=== PATIENT | male | born 1960 | race Caucasian/White ===

== ENCOUNTER 2017-01-04 13:28 | Inpatient (IN) | payer OTHER ==
[~2017-01-04] VITALS: Ht 167.6 cm; Wt 59.3 kg
[2017-01-04] MEDS ORDERED: ACET-784 PO (13:52)
[2017-01-04] MEDS ORDERED: SERT50TA12 PO (13:52)
[2017-01-04] MEDS ORDERED: ONDA4 PO (13:52)
[2017-01-04] MEDS ORDERED: LEVE250T55 PO (13:52)
[2017-01-04 14:20] LABS: ABG A-A DIFF O2 593.3 mmHg (10-20.0); ABG BASE EXCESS 0.3 mmol/L (-2.0-3.0); ABG HCO3 24.8 mmol/L (22.0-26.0); ABG OXYHEMOGLOBIN 94.2 % (94.0-100.0); ABG PCO2 38 mmHg (35-45); ABG PH 7.427 (7.35-7.450); ALLEN TEST, BLOOD GAS Positive; TEMPERATURE, FAHRENHEIT, BG 98.6 FAHREN (96.0-98.6)
[2017-01-04 14:47] LABS: BASOPHILS # (AUTO) 0.01 K/uL (0.00-0.20); BASOPHILS % (AUTO) 0.1 % (0.0-2.0); EOSINOPHILS % (AUTO) 0 % (1.0-6.0); HEMATOCRIT 43.2 % (41-53); HEMOGLOBIN 14.2 g/dL (13.5-17.5); LYMPHOCYTES # (AUTO) 0.4 K/uL (1.0-4.8); LYMPHOCYTES % (AUTO) 4.1 % (22.0-44.0); MEAN CORPUSCULAR HEMOGLOBIN 28.5 pg (26.0-34.0); MEAN CORPUSCULAR HGB CONC 32.9 G/dL (31.0-37.0); MEAN CORPUSCULAR VOLUME 87 fL (80-100); MONOCYTES # (AUTO) 0.4 K/uL (0.1-1.0); MONOCYTES % (AUTO) 3.6 % (2.0-9.0); NEUTROPHILS # (AUTO) 9.4 K/uL (1.8-7.7); PLATELET COUNT (AUTO) 262 K/uL (150-450); RED BLOOD CELL COUNT(AUTO) 4.97 MIL/uL (4.50-5.90); RED CELL DISTRIBUTION WIDTH 16.2 % (11.5-14.5); WHITE BLOOD COUNT (AUTO) 10.2 K/uL (4.5-11.0)
[2017-01-04 14:48] LABS: NEUTROPHILS % (AUTO) 92.3 % (40.0-70.0)
[2017-01-04 14:58] LABS: ANION GAP 13 mmol/L (8-16); CALCIUM, TOTAL 9.1 mg/dL (8.8-10.5); CARBON DIOXIDE 26 mmol/L (22-29); CHLORIDE 99 mmol/L (98-107); CREATININE 1.18 mg/dL (0.60-1.30); GLOMERULAR FILTR. RATE CALC > 60 mL/min (>60); POTASSIUM 3.4 mmol/L (3.5-5.1); SODIUM SERUM 138 mmol/L (136-145); UREA NITROGEN, BLOOD 20 mg/dL (7-18)
[2017-01-04 15:05] LABS: ALANINE AMINOTRANSFERASE 19 U/L (12-78); ALBUMIN 3.5 g/dL (3.4-5.0); ASPARTATE AMINOTRANSFERASE 9 U/L (15-37); BILIRUBIN,TOTAL 0.2 mg/dL (0.1-1.0); TOTAL PROTEIN, SERUM 7.7 g/dL (6.4-8.2)
[2017-01-04 15:31] LABS: LACTIC ACID 2.9 mmol/L (0.4-2.0)
[2017-01-04 15:41] LABS: RBC MORPHOLOGY COMMENT NORMAL RBC MORPH
[2017-01-04 16:12] LABS: B-TYPE NATRIURETIC PEPTIDE 5 pg/mL (0-100)
[2017-01-04] MEDS ORDERED: PIPERACILLIN/TAZO 3.375 GM/D5W 50 ML IV ONE (16:15)
[2017-01-04] MEDS ORDERED: 0.9% SODIUM CHLORIDE 10 ML SYRINGE IVP PRN (16:15)
[2017-01-04] MEDS ORDERED: ONDANSETRON HCL 4 MG/2 ML VIAL IVP PRN (16:15)
[2017-01-04] MEDS ORDERED: ACETAMINOPHEN 325 MG TABLET PO PRN ×2 (16:15→22:15)
[2017-01-04 16:42] LABS: REFLEX LACTIC ACID? YES YES
[2017-01-04 18:01] VITALS: BP 111/72
[2017-01-04] MEDS ORDERED: ATOR40TA28 PO (18:40)
[2017-01-04] MEDS ORDERED: AUD NEB (18:40)
[2017-01-04] MEDS ORDERED: PNEUMOCOCCAL VACCINE POLYVALENT 0.5 ML VIAL [PPSV23] IM ONE (19:15)
[2017-01-04 19:56] VITALS: BP 111/70
[2017-01-04] MEDS ORDERED: ACETAMINOPHEN 650 MG RECTAL SUPPOSITORY PR PRN (21:30)
[2017-01-04] MEDS ORDERED: BISACODYL 10 MG RECTAL RECTAL SUPPOSITORY PR PRN (22:15)
[2017-01-04] MEDS ORDERED: IPRATROPIUM BROMIDE 0.5 MG/2.5 ML NEB SOLUTION NEB PRN (22:15)
[2017-01-04] MEDS ORDERED: DEXTROSE 50%-WATER 25 GM/50 ML SYRINGE IVP PRN (22:30)
[2017-01-04] MEDS: DEXTROSE 5%-0.45% SODIUM CHL 1,000 ML IV SCH (22:39)
[2017-01-04] MEDS ORDERED: VANCOMYCIN HCL 1.25 GM in DEXTROSE 5%-WATER 250 ML IV ONE (23:15)
[2017-01-04] MEDS: LevETIRAcetam 500 MG in DEXTROSE 5%-WATER 100 ML IV SCH (23:22)
[2017-01-04 23:48] VITALS: BP 105/60
[2017-01-05] VITALS (7 sets, daily range): BP systolic 109–149; BP diastolic 64–94
[2017-01-05] MEDS: PIPERACILLIN SODIUM/TAZOBACTAM 4.5 GM in DEXTROSE 5%-WATER 100 ML IV SCH ×2 (00:21→06:05)
[2017-01-05] MEDS ORDERED: SODIUM CHLORIDE 0.9% 250 ML IV ONE ×3 (00:27→03:20)
[2017-01-05] MEDS: POTASSIUM CHL 10 MEQ/WATER 50 ML IV PRN ×3 (00:43→03:53)
[2017-01-05 07:19] LABS: HEMATOCRIT 37.5 % (41-53); HEMOGLOBIN 12.5 g/dL (13.5-17.5); MEAN CORPUSCULAR HEMOGLOBIN 28.9 pg (26.0-34.0); MEAN CORPUSCULAR HGB CONC 33.2 G/dL (31.0-37.0); MEAN CORPUSCULAR VOLUME 87 fL (80-100); RED BLOOD CELL COUNT(AUTO) 4.31 MIL/uL (4.50-5.90); RED CELL DISTRIBUTION WIDTH 16.2 % (11.5-14.5); WHITE BLOOD COUNT (AUTO) 9.9 K/uL (4.5-11.0)
[2017-01-05 07:20] LABS: BASOPHILS % (AUTO) 0.1 % (0.0-2.0); EOSINOPHILS % (AUTO) 0.1 % (1.0-6.0); LYMPHOCYTES # (AUTO) 0.7 K/uL (1.0-4.8); LYMPHOCYTES % (AUTO) 7.4 % (22.0-44.0); MONOCYTES # (AUTO) 0.5 K/uL (0.1-1.0); MONOCYTES % (AUTO) 4.7 % (2.0-9.0); NEUTROPHILS # (AUTO) 8.7 K/uL (1.8-7.7); PLATELET COUNT (AUTO) 264 K/uL (150-450)
[2017-01-05 07:39] LABS: NEUTROPHILS % (AUTO) 87.7 % (40.0-70.0)
[2017-01-05 07:46] LABS: ALANINE AMINOTRANSFERASE 16 U/L (12-78); ALBUMIN 2.7 g/dL (3.4-5.0); ANION GAP 12 mmol/L (8-16); ASPARTATE AMINOTRANSFERASE 8 U/L (15-37); BILIRUBIN,TOTAL 0.5 mg/dL (0.1-1.0); CALCIUM, TOTAL 8.5 mg/dL (8.8-10.5); CARBON DIOXIDE 24 mmol/L (22-29); CHLORIDE 102 mmol/L (98-107); CREATININE 0.84 mg/dL (0.60-1.30); GLOMERULAR FILTR. RATE CALC > 60 mL/min (>60); POTASSIUM 3.6 mmol/L (3.5-5.1); SODIUM SERUM 138 mmol/L (136-145); TOTAL PROTEIN, SERUM 6.5 g/dL (6.4-8.2); UREA NITROGEN, BLOOD 15 mg/dL (7-18)
[2017-01-05 08:43] LABS: INR 1.1 (0.9-1.1); PROTHROMBIN TIME 11.9 SEC (9.4-11.6)
[2017-01-05] MEDS: HEPARIN SODIUM,PORCINE 5,000 UNITS/ML VIAL SQ SCH ×2 (09:00→20:55)
[2017-01-05] MEDS ORDERED: ENOXAPARIN SODIUM 40 MG/0.4 ML PF SYRINGE SQ SCH (09:00)
[2017-01-05] MEDS: VANCOMYCIN HCL 1 GM/D5% WATER 200 ML IV SCH ×2 (09:04→20:55)
[2017-01-05] MEDS: PANTOPRAZOLE SODIUM 40 MG/VIAL IVP SCH (09:05)
[2017-01-05] MEDS: LevETIRAcetam 500 MG in DEXTROSE 5%-WATER 100 ML IV SCH ×2 (09:20→22:08)
[2017-01-05 11:08] LABS: TEMPERATURE, FAHRENHEIT, BG 98.6 FAHREN (96.0-98.6)
[2017-01-05 11:12] LABS: GLUCOSE,POINT OF CARE 138 MG/DL (70-110)
[2017-01-05 11:40] LABS: ABG A-A DIFF O2 390.1 mmHg (10-20.0); ABG BASE EXCESS 4.4 mmol/L (-2.0-3.0); ABG HCO3 28.7 mmol/L (22.0-26.0); ABG OXYHEMOGLOBIN 98.9 % (94.0-100.0); ABG PCO2 34 mmHg (35-45); ABG PH 7.526 (7.35-7.450)
[2017-01-05 11:46] LABS: ALLEN TEST, BLOOD GAS Positive
[2017-01-05] MEDS: PIPERACILLIN/TAZO 3.375 GM/D5W 50 ML IV SCH ×2 (12:13→17:45)
[2017-01-05] MEDS: INSULIN ASPART 100 UNITS/ML SQ PRN ×2 (12:34→17:29)
[2017-01-05] MEDS: DEXTROSE 5%-0.45% SODIUM CHL 1,000 ML IV SCH (12:40)
[2017-01-05 13:02] LABS: GLUCOSE COMMENT 1 Received Meds; GLUCOSE,POINT OF CARE 142 MG/DL (70-110)
[2017-01-05 13:33] LABS: GLUCOSE COMMENT 1 Received Meds; GLUCOSE,POINT OF CARE 151 MG/DL (70-110)
[2017-01-06] MEDS: PIPERACILLIN/TAZO 3.375 GM/D5W 50 ML IV SCH ×5 (00:26→23:51)
[2017-01-06] MEDS: DEXTROSE 5%-0.45% SODIUM CHL 1,000 ML IV SCH ×2 (02:52→22:28)
[2017-01-06 03:27] LABS: GLUCOSE,POINT OF CARE 115 MG/DL (70-110)
[2017-01-06 05:11] VITALS: BP 133/78
[2017-01-06 07:05] LABS: ANION GAP 10 mmol/L (8-16); CALCIUM, TOTAL 8.5 mg/dL (8.8-10.5); CARBON DIOXIDE 25 mmol/L (22-29); CHLORIDE 105 mmol/L (98-107); CREATININE 0.85 mg/dL (0.60-1.30); GLOMERULAR FILTR. RATE CALC > 60 mL/min (>60); POTASSIUM 3.4 mmol/L (3.5-5.1); SODIUM SERUM 140 mmol/L (136-145); UREA NITROGEN, BLOOD 10 mg/dL (7-18)
[2017-01-06 07:18] VITALS: BP 132/76
[2017-01-06] MEDS: VANCOMYCIN HCL 1 GM/D5% WATER 200 ML IV SCH ×2 (09:02→22:28)
[2017-01-06] MEDS: HEPARIN SODIUM,PORCINE 5,000 UNITS/ML VIAL SQ SCH ×2 (09:03→22:28)
[2017-01-06] MEDS: PANTOPRAZOLE SODIUM 40 MG/VIAL IVP SCH (09:03)
[2017-01-06] MEDS: LevETIRAcetam 500 MG in DEXTROSE 5%-WATER 100 ML IV SCH ×2 (10:48→22:29)
[2017-01-06 10:59] VITALS: BP 128/78
[2017-01-06] MEDS: POTASSIUM CHL 10 MEQ/WATER 50 ML IV PRN ×4 (12:04→23:52)
[2017-01-06 15:09] VITALS: BP 152/77
[2017-01-06 17:13] LABS: GLUCOSE,POINT OF CARE 118 MG/DL (70-110)
[2017-01-06 20:05] VITALS: BP 136/74
[2017-01-07] VITALS (8 sets, daily range): BP systolic 113–164; BP diastolic 60–86
[2017-01-07] MEDS: POTASSIUM CHL 10 MEQ/WATER 50 ML IV PRN ×2 (03:00→04:43)
[2017-01-07] MEDS: PIPERACILLIN/TAZO 3.375 GM/D5W 50 ML IV SCH ×4 (05:55→23:04)
[2017-01-07] MEDS ORDERED: SODIUM CHLORIDE 0.9% 500 ML IV ONE (06:20)
[2017-01-07 06:21] LABS: ANION GAP 10 mmol/L (8-16); CALCIUM, TOTAL 9.1 mg/dL (8.8-10.5); CARBON DIOXIDE 24 mmol/L (22-29); CHLORIDE 104 mmol/L (98-107); CREATININE 0.86 mg/dL (0.60-1.30); GLOMERULAR FILTR. RATE CALC > 60 mL/min (>60); POTASSIUM 3.7 mmol/L (3.5-5.1); SODIUM SERUM 138 mmol/L (136-145); UREA NITROGEN, BLOOD 8 mg/dL (7-18)
[2017-01-07] MEDS: VANCOMYCIN HCL 1 GM/D5% WATER 200 ML IV SCH ×2 (08:36→20:26)
[2017-01-07] MEDS: PANTOPRAZOLE SODIUM 40 MG/VIAL IVP SCH (08:36)
[2017-01-07] MEDS: HEPARIN SODIUM,PORCINE 5,000 UNITS/ML VIAL SQ SCH ×2 (08:37→20:26)
[2017-01-07] MEDS: LevETIRAcetam 500 MG in DEXTROSE 5%-WATER 100 ML IV SCH ×2 (10:33→23:04)
[2017-01-07] MEDS: DEXTROSE 5%-0.45% SODIUM CHL 1,000 ML IV SCH (14:34)
[2017-01-07 19:23] LABS: GLUCOSE,POINT OF CARE 145 MG/DL (70-110)
[2017-01-07 19:27] LABS: GLUCOSE COMMENT 1 Received Meds; GLUCOSE,POINT OF CARE 130 MG/DL (70-110)
[2017-01-07 19:43] LABS: GLUCOSE,POINT OF CARE 124 MG/DL (70-110)
[2017-01-07 19:43] LABS: GLUCOSE,POINT OF CARE 114 MG/DL (70-110)
[2017-01-07 19:43] LABS: GLUCOSE,POINT OF CARE 99 MG/DL (70-110)
[2017-01-08 04:43] VITALS: BP 153/81
[2017-01-08] MEDS: PIPERACILLIN/TAZO 3.375 GM/D5W 50 ML IV SCH ×4 (06:07→23:19)
[2017-01-08 07:03] LABS: ANION GAP 12 mmol/L (8-16); CALCIUM, TOTAL 9.3 mg/dL (8.8-10.5); CARBON DIOXIDE 24 mmol/L (22-29); CHLORIDE 107 mmol/L (98-107); CREATININE 1.24 mg/dL (0.60-1.30); GLOMERULAR FILTR. RATE CALC > 60 mL/min (>60); POTASSIUM 3.2 mmol/L (3.5-5.1); SODIUM SERUM 143 mmol/L (136-145); UREA NITROGEN, BLOOD 9 mg/dL (7-18)
[2017-01-08 07:03] LABS: GLUCOSE,POINT OF CARE 100 MG/DL (70-110)
[2017-01-08 07:03] LABS: GLUCOSE,POINT OF CARE 104 MG/DL (70-110)
[2017-01-08 07:46] VITALS: BP 147/80
[2017-01-08] MEDS: VANCOMYCIN HCL 1 GM/D5% WATER 200 ML IV SCH (08:31)
[2017-01-08] MEDS: HEPARIN SODIUM,PORCINE 5,000 UNITS/ML VIAL SQ SCH ×2 (08:31→21:32)
[2017-01-08] MEDS: PANTOPRAZOLE SODIUM 40 MG/VIAL IVP SCH (08:32)
[2017-01-08] MEDS: POTASSIUM CHL 10 MEQ/WATER 50 ML IV PRN ×3 (09:51→12:18)
[2017-01-08] MEDS: LevETIRAcetam 500 MG in DEXTROSE 5%-WATER 100 ML IV SCH ×2 (10:55→21:32)
[2017-01-08 11:34] VITALS: BP 148/96
[2017-01-08] MEDS: INSULIN ASPART 100 UNITS/ML SQ PRN (11:55)
[2017-01-08] MEDS: DEXTROSE 5%-0.45% SODIUM CHL 1,000 ML IV SCH (12:16)
[2017-01-08 15:47] VITALS: BP 156/97
[2017-01-08 17:32] LABS: GLUCOSE,POINT OF CARE 116 MG/DL (70-110)
[2017-01-08 17:32] LABS: GLUCOSE,POINT OF CARE 107 MG/DL (70-110)
[2017-01-08 17:32] LABS: GLUCOSE COMMENT 1 Received Meds; GLUCOSE,POINT OF CARE 184 MG/DL (70-110)
[2017-01-08 19:51] VITALS: BP 158/77
[2017-01-08 20:12] LABS: GLUCOSE,POINT OF CARE 117 MG/DL (70-110)
[2017-01-08] MEDS ORDERED: SODIUM CHLORIDE 0.9% 250 ML IV ONE (20:45)
[2017-01-09 00:06] VITALS: BP 158/70
[2017-01-09] MEDS: PIPERACILLIN/TAZO 3.375 GM/D5W 50 ML IV SCH (05:15)
[2017-01-09 05:20] VITALS: BP 158/82
[2017-01-09 06:51] LABS: BASOPHILS # (AUTO) 0.01 K/uL (0.00-0.20); BASOPHILS % (AUTO) 0.2 % (0.0-2.0); EOSINOPHILS # (AUTO) 0.04 K/uL (0.00-0.70); EOSINOPHILS % (AUTO) 0.52 % (1.0-6.0); HEMATOCRIT 40.2 % (41-53); HEMOGLOBIN 13.5 g/dL (13.5-17.5); LYMPHOCYTES # (AUTO) 0.9 K/uL (1.0-4.8); LYMPHOCYTES % (AUTO) 10.6 % (22.0-44.0); MEAN CORPUSCULAR HEMOGLOBIN 28.5 pg (26.0-34.0); MEAN CORPUSCULAR HGB CONC 33.5 G/dL (31.0-37.0); MEAN CORPUSCULAR VOLUME 85 fL (80-100); MONOCYTES # (AUTO) 0.8 K/uL (0.1-1.0); MONOCYTES % (AUTO) 9.3 % (2.0-9.0); NEUTROPHILS # (AUTO) 6.9 K/uL (1.8-7.7); NEUTROPHILS % (AUTO) 79.4 % (40.0-70.0); PLATELET COUNT (AUTO) 347 K/uL (150-450); RED BLOOD CELL COUNT(AUTO) 4.72 MIL/uL (4.50-5.90); RED CELL DISTRIBUTION WIDTH 16.3 % (11.5-14.5); WHITE BLOOD COUNT (AUTO) 8.7 K/uL (4.5-11.0)
[2017-01-09 06:58] LABS: CALCIUM, TOTAL 9.4 mg/dL (8.8-10.5); CREATININE 1.37 mg/dL (0.60-1.30); POTASSIUM 3.3 mmol/L (3.5-5.1)
[2017-01-09] MEDS: PANTOPRAZOLE SODIUM 40 MG/VIAL IVP SCH (07:37)
[2017-01-09] MEDS: POTASSIUM CHL 10 MEQ/WATER 50 ML IV PRN ×3 (07:45→10:31)
[2017-01-09 07:47] VITALS: BP 148/76
[2017-01-09] MEDS ORDERED: VANCOMYCIN HCL 1 GM/D5% WATER 200 ML IV SCH (08:00)
[2017-01-09] MEDS: HEPARIN SODIUM,PORCINE 5,000 UNITS/ML VIAL SQ SCH ×2 (08:00→20:06)
[2017-01-09 09:18] LABS: GLUCOSE,POINT OF CARE 131 MG/DL (70-110)
[2017-01-09] MEDS ORDERED: LEVOFLOXACIN 500 MG TABLET PO SCH (10:00)
[2017-01-09] MEDS ORDERED: MetroNIDAZOLE 500 MG TABLET PO SCH (10:00)
[2017-01-09] MEDS ORDERED: LevETIRAcetam 500 MG TABLET PO ONE (10:30)
[2017-01-09] MEDS: DEXTROSE 5%-0.45% SODIUM CHL 1,000 ML IV SCH (10:34)
[2017-01-09] MEDS ORDERED: LevETIRAcetam 500 MG in DEXTROSE 5%-WATER 100 ML IV ONE (10:45)
[2017-01-09 12:38] LABS: GLUCOSE,POINT OF CARE 117 MG/DL (70-110)
[2017-01-09 16:09] VITALS: BP 145/77
[2017-01-09 18:57] LABS: GLUCOSE,POINT OF CARE 136 MG/DL (70-110)
[2017-01-09 18:57] LABS: GLUCOSE,POINT OF CARE 105 MG/DL (70-110)
[2017-01-09 20:00] VITALS: BP 156/75
[2017-01-09] MEDS: MetroNIDAZOLE 500 MG/NACL 100 ML IV SCH (20:07)
[2017-01-09] MEDS ORDERED: LevETIRAcetam 500 MG TABLET PO SCH (21:00)
[2017-01-09 23:22] VITALS: BP 157/92
[2017-01-10] MEDS: LevETIRAcetam 500 MG in DEXTROSE 5%-WATER 100 ML IV SCH ×3 (00:55→23:47)
[2017-01-10] MEDS ORDERED: 0.9% SODIUM CHLORIDE 5 ML NEB SOLUTION NEB ONE (01:18)
[2017-01-10] MEDS: ACETYLCYSTEINE 10% 100 MG/ML 4 ML NEB SOLUTION NEB SCH ×4 (01:21→23:05)
[2017-01-10] MEDS: ALBUTEROL SULFATE 2.5 MG/0.5 ML NEB SOLUTION NEB PRN ×4 (01:21→23:08)
[2017-01-10] MEDS: MetroNIDAZOLE 500 MG/NACL 100 ML IV SCH ×3 (03:03→18:18)
[2017-01-10] MEDS: DEXTROSE 5%-0.45% SODIUM CHL 1,000 ML IV SCH ×2 (03:03→22:41)
[2017-01-10 03:52] VITALS: BP 136/81
[2017-01-10 06:07] LABS: GLUCOSE,POINT OF CARE 122 MG/DL (70-110)
[2017-01-10 06:07] LABS: GLUCOSE,POINT OF CARE 124 MG/DL (70-110)
[2017-01-10 06:57] LABS: BASOPHILS % (AUTO) 0.1 % (0.0-2.0); EOSINOPHILS % (AUTO) 0.1 % (1.0-6.0); HEMATOCRIT 40.4 % (41-53); HEMOGLOBIN 13.4 g/dL (13.5-17.5); LYMPHOCYTES # (AUTO) 0.9 K/uL (1.0-4.8); LYMPHOCYTES % (AUTO) 9.1 % (22.0-44.0); MEAN CORPUSCULAR HEMOGLOBIN 28.6 pg (26.0-34.0); MEAN CORPUSCULAR HGB CONC 33.1 G/dL (31.0-37.0); MEAN CORPUSCULAR VOLUME 86 fL (80-100); MONOCYTES # (AUTO) 0.8 K/uL (0.1-1.0); MONOCYTES % (AUTO) 7.7 % (2.0-9.0); NEUTROPHILS # (AUTO) 8.4 K/uL (1.8-7.7); PLATELET COUNT (AUTO) 389 K/uL (150-450); RED BLOOD CELL COUNT(AUTO) 4.67 MIL/uL (4.50-5.90); RED CELL DISTRIBUTION WIDTH 16.3 % (11.5-14.5); WHITE BLOOD COUNT (AUTO) 10.2 K/uL (4.5-11.0)
[2017-01-10 07:03] LABS: INR 1.1 (0.9-1.1)
[2017-01-10 07:09] LABS: CALCIUM, TOTAL 9.5 mg/dL (8.8-10.5); CREATININE 1.39 mg/dL (0.60-1.30)
[2017-01-10] MEDS: PANTOPRAZOLE SODIUM 40 MG/VIAL IVP SCH (08:17)
[2017-01-10] MEDS: POTASSIUM CHL 10 MEQ/WATER 50 ML IV PRN ×3 (08:17→11:45)
[2017-01-10 08:28] VITALS: BP 148/73
[2017-01-10] MEDS ORDERED: PANTOPRAZOLE SODIUM 40 MG DR TABLET PO SCH (09:00)
[2017-01-10] MEDS: LEVOFLOXACIN 500 MG/D5% WATER 100 ML IV SCH (09:15)
[2017-01-10 11:26] VITALS: BP 159/95
[2017-01-10 13:30] LABS: MAGNESIUM 1.6 mg/dL (1.80-2.40); POTASSIUM 3.7 mmol/L (3.5-5.1)
[2017-01-10] MEDS ORDERED: SODIUM CHLORIDE 0.9% 1,000 ML IV ONE ×2 (14:00→14:03)
[2017-01-10] MEDS ORDERED: FentaNYL CITRATE-PF 100 MCG/2 ML VIAL ONE (14:42)
[2017-01-10] MEDS ORDERED: MIDAZOLAM HCL 5 MG/ML VIAL ONE (14:42)
[2017-01-10] MEDS ORDERED: NALOXONE HCL 1 MG/ML 2 ML SYG IVP PRN (15:00)
[2017-01-10] MEDS ORDERED: CeFAZolin 1 GM/DEXTROSE 50 ML IV ONE ×2 (15:00→15:28)
[2017-01-10 16:15] VITALS: BP 155/89
[2017-01-10] MEDS ORDERED: MAGNESIUM SULFATE 2 GM in DEXTROSE 5%-WATER 50 ML IV PRN (19:00)
[2017-01-10] MEDS ORDERED: MAGNESIUM OXIDE 400 MG TABLET PO PRN (19:00)
[2017-01-10] MEDS ORDERED: MAGNESIUM SULFATE 4 GM/WATER 100 ML IV PRN (19:00)
[2017-01-10 19:46] VITALS: BP 146/88
[2017-01-10 20:03] LABS: GLUCOSE,POINT OF CARE 109 MG/DL (70-110)
[2017-01-10 23:52] VITALS: BP 151/81
[2017-01-11] VITALS (7 sets, daily range): BP systolic 112–194; BP diastolic 76–98
[2017-01-11] MEDS: MetroNIDAZOLE 500 MG/NACL 100 ML IV SCH ×3 (00:01→17:00)
[2017-01-11 03:58] LABS: GLUCOSE COMMENT 1 Received Meds; GLUCOSE,POINT OF CARE 100 MG/DL (70-110)
[2017-01-11 06:17] LABS: GLUCOSE COMMENT 1 Received Meds; GLUCOSE,POINT OF CARE 117 MG/DL (70-110)
[2017-01-11 06:51] LABS: CALCIUM, TOTAL 8.9 mg/dL (8.8-10.5); CREATININE 1.46 mg/dL (0.60-1.30); MAGNESIUM 2.3 mg/dL (1.80-2.40); POTASSIUM 3.1 mmol/L (3.5-5.1)
[2017-01-11] MEDS: POTASSIUM CHL 10 MEQ/WATER 50 ML IV PRN ×3 (08:06→10:13)
[2017-01-11] MEDS: PANTOPRAZOLE SODIUM 40 MG/VIAL IVP SCH (08:06)
[2017-01-11] MEDS: OXYGEN THERAPY IH SCH (08:14)
[2017-01-11] MEDS: ACETYLCYSTEINE 10% 100 MG/ML 4 ML NEB SOLUTION NEB SCH ×3 (08:24→23:13)
[2017-01-11] MEDS: ALBUTEROL SULFATE 2.5 MG/0.5 ML NEB SOLUTION NEB PRN ×2 (08:24→23:13)
[2017-01-11] MEDS: POVIDONE-IODINE 10% 120 ML SOLUTION TP SCH (09:00)
[2017-01-11] MEDS: HYDROGEN PEROXIDE 473 ML SOLUTION TP SCH (09:00)
[2017-01-11] MEDS: LEVOFLOXACIN 500 MG/D5% WATER 100 ML IV SCH (10:13)
[2017-01-11] MEDS ORDERED: CloNIDine HCL 0.1 MG TABLET PO PRN (11:45)
[2017-01-11] MEDS: LevETIRAcetam 500 MG in DEXTROSE 5%-WATER 100 ML IV SCH (13:08)
[2017-01-11] MEDS: INSULIN ASPART 100 UNITS/ML SQ PRN (13:14)
[2017-01-11] MEDS: DEXTROSE 5%-0.45% SODIUM CHL 1,000 ML IV SCH (19:10)
[2017-01-12] MEDS: OXYGEN THERAPY IH SCH ×2 (00:52→07:38)
[2017-01-12] MEDS: LevETIRAcetam 500 MG in DEXTROSE 5%-WATER 100 ML IV SCH ×2 (00:52→12:29)
[2017-01-12] MEDS: MetroNIDAZOLE 500 MG/NACL 100 ML IV SCH ×2 (01:16→09:02)
[2017-01-12 04:36] VITALS: BP 157/93
[2017-01-12 06:26] LABS: CALCIUM, TOTAL 9.2 mg/dL (8.8-10.5); CREATININE 1.45 mg/dL (0.60-1.30); POTASSIUM 3.6 mmol/L (3.5-5.1)
[2017-01-12] MEDS: POTASSIUM CHL 10 MEQ/WATER 50 ML IV PRN ×3 (07:37→12:34)
[2017-01-12] MEDS: POVIDONE-IODINE 10% 120 ML SOLUTION TP SCH (07:37)
[2017-01-12] MEDS: HYDROGEN PEROXIDE 473 ML SOLUTION TP SCH (07:38)
[2017-01-12 07:41] VITALS: BP 152/91
[2017-01-12] MEDS: PANTOPRAZOLE SODIUM 40 MG/VIAL IVP SCH (07:41)
[2017-01-12] MEDS: ACETYLCYSTEINE 10% 100 MG/ML 4 ML NEB SOLUTION NEB SCH (08:11)
[2017-01-12] MEDS: ALBUTEROL SULFATE 2.5 MG/0.5 ML NEB SOLUTION NEB PRN (08:11)
[2017-01-12] MEDS ORDERED: SODIUM CHLORIDE 0.9% 250 ML IV ONE (09:00)
[2017-01-12] MEDS: LEVOFLOXACIN 500 MG/D5% WATER 100 ML IV SCH (09:03)
[2017-01-12 11:39] VITALS: BP 141/84
[2017-01-12 13:42] LABS: GLUCOSE,POINT OF CARE 134 MG/DL (70-110)
[2017-01-12 13:42] LABS: GLUCOSE,POINT OF CARE 150 MG/DL (70-110)
[2017-01-12 13:46] LABS: GLUCOSE,POINT OF CARE 133 MG/DL (70-110)
[2017-01-13 17:47] LABS: GLUCOSE,POINT OF CARE 109 MG/DL (70-110)
[2017-01-13 17:47] LABS: GLUCOSE COMMENT 1 Received Meds; GLUCOSE,POINT OF CARE 127 MG/DL (70-110)
[2017-01-13 23:32] LABS: GLUCOSE,POINT OF CARE 128 MG/DL (70-110)
== END 2017-01-12 15:20 | DRG 720 ==
LOC: EMS 13:32 → 5N 16:39 → 5S 01-11 17:23
PROVIDERS: ADMIT Internal Medicine; ATTEND Internal Medicine
PROC: 3E0234Z Introduction of Serum, Toxoid and Vaccine into Muscle, Percutaneous Approach (ICD-10-PCS; 2017-01-04)
PROC: 0DH63UZ Insertion of Feeding Device into Stomach, Percutaneous Approach (ICD-10-PCS; principal; 2017-01-10 15:00)
DX: A41.9 Sepsis, unspecified organism (principal); J96.01 Acute respiratory failure with hypoxia; J69.0 Pneumonitis due to inhalation of food and vomit; G93.40 Encephalopathy, unspecified; E43 Unspecified severe protein-calorie malnutrition; J90 Pleural effusion, not elsewhere classified; R64 Cachexia; E87.0 Hyperosmolality and hypernatremia; R62.7 Adult failure to thrive; F32.9 Major depressive disorder, single episode, unspecified; I12.9 Hypertensive chronic kidney disease with stage 1 through stage 4 chronic kidney disease, or unspecified chronic kidney disease; N18.3 Chronic kidney disease, stage 3 (moderate); R56.9 Unspecified convulsions; Z68.21 Body mass index [BMI] 21.0-21.9, adult; Z98.2 Presence of cerebrospinal fluid drainage device; Z23 Encounter for immunization; Z22.322 Carrier or suspected carrier of Methicillin resistant Staphylococcus aureus
CPT/HCPCS: 70450; 71250; 76604; 82805; 82962; 83605; 83735; 84132; 87040; 87081; 92526; 92610; 93005; 93306; 93970; 94640; 96365; 99291; C9113; J0690; J0712; J1644; J1956; J2250; J2543; J3010; J3370; J3475; J3480; J3490; J7030; J7040; J7050; J7060